=== PATIENT | male | born 1945 | race Caucasian/White ===

== ENCOUNTER 2021-07-19 07:04 | Day surgery (SDC) | payer MEDICARE, BC ==
[2021-07-12 11:30] VITALS: BMI 43.0
[~2021-07-19 07:04] MED LIST: ALPRAZolam 0.25 MG TAB PO PRN; ALPRAZolam 0.5 MG TAB PO PRN; ASPIRIN 325 MG TAB PO STA; HEPARIN SODIUM,PORCINE 10,000 UNIT in SODIUM CHLORIDE 0.9% 1,000 ML IRRIGATION PRN; HEPARIN SODIUM,PORCINE 2,500 UNIT in SODIUM CHLORIDE 0.9% 250 ML IRRIGATION PRN; NITROGLYCERIN SL TABS 0.4 MG TAB SUBLINGUAL PRN; SODIUM CHLORIDE 0.9% 1,000 ML in EMPTY BAG 1 BAG IV ONE
[2021-07-19 07:48] VITALS: TEMP 97.8
[2021-07-19] MEDS ORDERED: VERAPAMIL 2.5 MG/ML 2 ML AMP ONE (09:03)
[2021-07-19] MEDS ORDERED: LIDOCAINE 1% INJ 10MG/ML (20 ML MDV) ONE (09:03)
[2021-07-19] MEDS ORDERED: HEPARIN SODIUM 1,000 UN/ML (10ML VL) ONE (09:19)
[2021-07-19] MEDS ORDERED: fentaNYL (PF) 50 MCG/ML 2 ML AMP ONE (09:19)
[2021-07-19] MEDS ORDERED: fentaNYL (PF) 50 MCG/ML 2 ML AMP IV ONE (09:45)
[2021-07-19] MEDS ORDERED: MIDAZOLAM 2 MG/2 ML VIAL IV ONE (09:45)
[2021-07-19] MEDS ORDERED: LIDOCAINE 1% INJ 10MG/ML (10 ML MDV) SQ ONE (09:49)
[2021-07-19] MEDS ORDERED: VERAPAMIL SYRINGE (5 MG/10 ML) INTRAARTER ONE (09:51)
[2021-07-19] MEDS ORDERED: HEPARIN SODIUM 1,000 UN/ML (10ML VL) IV ONE (10:01)
[2021-07-19] MEDS ORDERED: IOPAMIDOL-370 125ML BTL INJ ONE (10:23)
[2021-07-19] MEDS ORDERED: IOPAMIDOL-370 100ML BTL INJ ONE (10:29)
[2021-07-19] MEDS ORDERED: RX INFO: IV CONTRAST WAS GIVEN 1 EACH MISC MISCELLANE PRN (10:50)
[2021-07-19] MEDS ORDERED: SODIUM CHLORIDE 0.9% 1,000 ML IV SCH (11:00)
[2021-07-19 14:23] VITALS: BP 133/60; PULSE 55; RESP 16
--- NOTE | 2021-07-19 14:25 | LTR ---
DATE OF SERVICE: 07/19/[address] Dorman: I had the pleasure of performing cardiac catheterization on Mr. Welsh at [facility] on July 19 and a full copy of procedure note will be forwarded to you. In brief, he was found to have severe triple-vessel coronary artery disease with patent saphenous vein graft to the ramus intermedius and to the PDA and patent JONES to LAD. Based on those findings, I recommend continued medical therapy with aggressive coronary risk factor modifications that have been initiated. Thank you again for allowing me to participate in this patient's care. Please feel free to call for any questions. Sincerely, ANABEL / LIDIAN: [id number] / HENRIK
--- NOTE | 2021-07-19 14:25 | CC ---
CARDIAC CATHETERIZATION REPORT Mr. Welsh is a 76-year-old male with known history of coronary artery disease status post coronary artery bypass grafting in 2002 who has been complaining of symptoms of progressive dyspnea on exertion as well as chest discomfort. He underwent myocardial perfusion imaging that revealed evidence of lateral wall ischemia. In view of that, recommendation made regarding cardiac catheterization, the procedure as well as the risks and the complications were discussed with the patient who is in full understanding and agreement. PROCEDURE: Patient was brought to the [facility] in a fasting semisedated state. After receiving fentanyl and Benadryl and achieving moderate conscious sedated state, using Xylocaine anesthesia and Seldinger technique, a 6-Somali sheath was introduced in the left radial artery. Selective right and left coronary angiography performed using 5-Somali 4 bend right and left Bee catheter. Multiple views of the coronary artery including hemiaxial views were obtained. Following that, a 6-Somali multipurpose B2 was used cannulate the saphenous vein graft to the ramus intermedius as well as JONES to the LAD. Images of the grafts were obtained. Following that, a multipurpose A2 was used to cannulate the saphenous vein graft to the right coronary artery. Multiple views of the grafts were obtained. Following that, catheters were removed and a 5-Somali tight pigtail catheter was introduced into the left ventricle and left ventricular end- diastolic pressure was calculated. Following that, catheter and sheath were removed. Hemostasis was obtained with deployment of a TR band. There was no immediate complication. The patient was returned to his room in stable condition. Of note, the patient received 5000 units of intravenous heparin as well as intra-arterial verapamil. There was no immediate complication. FINDINGS: FLUOROSCOPY: There is calcification involving all the left anterior descending artery. CORONARY ANGIOGRAM: 1. LEFT MAIN: This is a large-sized vessel, trifurcating into left anterior descending artery, ramus intermedius and left circumflex. Left main coronary artery has a 30% to 40% plaque distally. 2. LEFT ANTERIOR DESCENDING ARTERY: This vessel gives rise to 2 diagonal branches. Proximal to the diagonal branch there is intimal disease of 20% to 30%. The first diagonal branch has diffuse intimal disease up to the 50 to 60%. The vessel is small in caliber. After the second diagonal branch, the LAD is totally occluded with no significant antegrade flow. 3. LEFT CIRCUMFLEX: This is a nondominant vessel giving rise to a small obtuse marginal branch. The left circumflex has diffuse intimal disease without any evidence of high-grade stenosis. 4. RAMUS INTERMEDIUS: This is a large-sized vessel has diffuse intimal disease proximally up to 80%. There is competitive flow into the vessels through the graft. 5. RIGHT CORONARY ARTERY: This vessel is totally occluded proximally with minimal antegrade flow. 6. SAPHENOUS VEIN GRAFT TO THE RAMUS INTERMEDIUS: This is a large-sized twenty-nine palms vessel that is a branching vessel. The proximal and the distal anastomotic site are patent. The flow into the twenty-nine palms vessel is brisk. There is no evidence of high- grade stenosis. 7. The JONES to LAD: The distal anastomotic site is patent. The flow into the LAD is brisk. There is no evidence of high-grade stenosis. 8. The saphenous vein graft to the right coronary artery: The proximal and distal anastomotic sites are patent. The flow into the PDA is brisk. There is no evidence of high-grade stenosis. LEFT VENTRICULOGRAM: Was not performed. HEMODYNAMICS: There was no gradient across the aortic valve. The left ventricular end-diastolic pressure was 12-16 mmHg. CONCLUSION: 1. Severe triple-vessel coronary disease. 2. Patent JONES to LAD. 3. Patent saphenous vein graft to the ramus intermedius. 4. Patent saphenous vein graft to the PDA. RECOMMENDATION: In view of findings and anatomy, I recommend continued medical therapy with aggressive coronary risk modifications that have been initiated. Those findings and recommendations were discussed with the patient and his family and they are in full understanding and agreement. Duration of sedation is 49 minutes. MMODL / IJN: [id number] /
[2021-07-19] MEDS ORDERED: LOSARTAN 50 MG TAB PO SCH (21:00)
[2021-07-19] MEDS ORDERED: ASPIRIN 325 MG TAB PO SCH (21:00)
[2021-07-20] MEDS ORDERED: atenoloL 25 MG TAB PO SCH (09:00)
[2021-07-20] MEDS ORDERED: amLODIPine 10 MG TAB PO SCH (09:00)
[2021-07-20] MEDS ORDERED: ISOSORBIDE MONONITRATE ER 30 MG TAB.ER.24H PO SCH (09:00)
[2021-07-20] MEDS ORDERED: EZETIMIBE 10 MG TAB PO SCH (09:00)
[2021-07-20] MEDS ORDERED: LORATADINE 10 MG TAB PO SCH (09:00)
[2021-07-21] MEDS ORDERED: ATORVASTATIN 10 MG TAB PO SCH (09:00)
== END 2021-07-19 14:27 | disposition home or self-care (01) ==
LOC: CATHCVL 07:04
PROVIDERS: ATTEND Internal Medicine Interventional Cardiology
DX: I25.10 Atherosclerotic heart disease of native coronary artery without angina pectoris (principal); Z95.1 Presence of aortocoronary bypass graft; Z82.49 Family history of ischemic heart disease and other diseases of the circulatory system; Z79.899 Other long term (current) drug therapy; I08.1 Rheumatic disorders of both mitral and tricuspid valves; I49.3 Ventricular premature depolarization; I44.7 Left bundle-branch block, unspecified; Z79.82 Long term (current) use of aspirin; Z88.0 Allergy status to penicillin; Z88.8 Allergy status to other drugs, medicaments and biological substances; I25.5 Ischemic cardiomyopathy; E78.2 Mixed hyperlipidemia; I12.9 Hypertensive chronic kidney disease with stage 1 through stage 4 chronic kidney disease, or unspecified chronic kidney disease; N18.9 Chronic kidney disease, unspecified; Z85.828 Personal history of other malignant neoplasm of skin; Z87.891 Personal history of nicotine dependence
CPT/HCPCS: 93459; C1894; C1769 ×2; J2250; J3010; J1644; J2001; Q9967 ×2

== ENCOUNTER → 2021-08-13 | Outpatient (CLI) | payer MEDICARE, BC ==
--- NOTE | 2021-08-13 16:29 | XR ---
EXAMINATION TYPE: XR chest 2V DATE OF EXAM: 08/13/2021 COMPARISON: Chest x-ray March 04, 2016 HISTORY: Cough for a few months. TECHNIQUE: Frontal and lateral views of the chest are obtained. FINDINGS: Overlying sternal wires and mediastinal clips redemonstrated. There is mild chronic parenc hymal changes bilaterally without suspicious new focal air space opacity, pleural effusion, or pneumo thorax seen. The cardiac silhouette size is stable and enlarged. Degenerative change bilateral shoul ders and spine redemonstrated. IMPRESSION: Chronic changes and cardiomegaly without acute pulmonary process.
== END | disposition home or self-care (01) ==
LOC: RADXRMAIN 16:09
PROVIDERS: ATTEND Family Medicine
DX: J98.4 Other disorders of lung (principal); I51.7 Cardiomegaly
CPT/HCPCS: 71046